=== PATIENT | female | born 2005 | race Caucasian/White ===

== ENCOUNTER 2025-02-26 06:40 | Outpatient (REF) | payer OTHER, SELFPAY ==
--- NOTE | ~2025-02-26 | US_ITS ---
EXAMINATION: US PELVIS CLINICAL INFORMATION: Pelvic and perineal pain COMPARISON: None available. TECHNIQUE: Ultrasound of the pelvis is performed using both transabdominal and transvaginal transducers along with Doppler. Transvaginal imaging is performed due to inadequate visualization transabdominally. FINDINGS: Uterus: The uterus is anteverted and measures 6.3 x 2.8 x 3.5 cm. The double wall endometrial thickness is 6 mm. IUD is visible in the upper uterine cavity. The uterus is smooth in contour and has normal myometrial echogenicity. No visible fibroid. Adnexa: Both ovaries are visualized. There is normal color flow to the adnexa. There is no ovarian torsion. There is no pelvic ascites or fluid collection. Right ovary measures 3.2 x 2.6 x 2.7 cm. Left ovary measures 3.8 x 2.3 x 2.0 cm. US/US pelvic and transvaginal IMPRESSION: Unremarkable pelvic ultrasound. IUD is appropriately positioned in the upper uterine canal. Electronically signed by: Wayne Brown MD 02/26/2025 02:36 PM EST
--- OUTSIDE RECORDS SUMMARY | 2025-02-26 06:44 | XMS_ITS | Clinical Summary ---
Author Organization [facility] Address [address] [place] [id number] Phone Care Team Providers Care Leather Shaver Name Role Phone Pcp, Unknown Primary Care Provider Unavailabl e Allergies No known active allergies Medications No known medications Social History Tobacco Use Types Packs/Day Years Used Date Smoking Tobacco: Never Assessed Education Answer Date Recorded Are you interested in more education? Not on titus e 05/20/2023 Are you concerned about learning? Not on file 05/20/2023 No 05/20/2023 No 05/20/2023 Digital Access Answer Date Recorded No 05/20/2023 No 05/20/2023 Reliable internet access at home? Not on file 05/20/2023 Device with a working camera? Not on file Intimate Partner Violence Answer Date R ecorded Are you denied basic needs s uch as food, clothing, or medical care? No 05/20/2023 In the past 12 months have y ou been in a relationship with a person who hurts, threatens, or tries to control you? No 05/20/2023 Are you denied basic needs s uch as food, clothing, or medical care? No 05/20/2023 In the past 12 months have y ou been in a relationship with a person who hurts, threatens, or tries to control you? No 05/20/2023 Comments Unknown Sex and Gender Information Value Date Recorded Sex Assigned at Female 05/20/2023 4:20 PM EST Legal Sex Female 4:06 PM EST Gender Identity Female 05/20/2023 4:20 PM EST Sexual Orientation Straight 05/20/2023 4: 26 PM EST Last Filed Vital Signs Vital Sign Reading Time Taken Comments Blood Pressure 124/74 05/20/2023 7:39 PM EST Pulse 84 05/20/2023 7:39 PM EST Temperature 37 C (98.6 F) 05/20/2023 7:39 PM EST Respiratory Rate 20 05/20/2023 7:39 PM EST Oxygen Saturation 98% 05/20/2023 7:39 PM EST Inhaled Oxygen Concentration - - Weight 53.1 kg (117 lb) 05/20/2023 4:25 PM EST Height 162.6 cm (5' 4 ) 05/20/2023 4:25 PM EST Body Mass Index 20.08 05/20/2023 4:25 PM EST Plan of Treatment Health Maintenance Due Date Last Done Comments Adult Td,Tdap Booster 2003 MMR VACCINES (1 of 1 - Stand stephani series) 09/23/2004 COMBINED DTaP,Tdap,Td (1 - Tdap) 09/23/2010 DEPRESSION SCREENING 2015 SMOKING Hx and SMOKELESS TOB ACCO SCREENING 09/23/2016 HPV VACCINES (1 - 3-dose series) 09/23/2018 CHLAMYDIA SCREENING 2019 MENINGOCOCCAL VACCINES (B) ( 1 of 2 - Standard) 2019 ADOLESCENT UNIVERSAL LIPID SCREENING 09/23/2020 HEPATITIS C SCREENING 09/23/2021 HIV ONE-TIME SCREENING (18-6 5 YEARS) 09/23/2021 PAP SMEAR 09/23/2024 INFLUENZA VACCINE (#1) 2024 COVID-19 VACCINE ( - 2024-2 6 season) 2024 HEPATITIS A VACCINES Aged Out No long er eligible based on patient's age to complete this topic HIB VACCINES Aged Out No longer eligi ble based on patient's age to complete this topic MENINGOCOCCAL VACCINES (ACWY) Aged Out No longer eligible based on patient's age to complete this topic PNEUMOCOCCAL VACCINES (0-49 years) Aged Out No longer eligible based on patient's age to complete this topic Medical Devices Not on file Insurance [facility] Care Teams Leather Shaver Relationship Specialty Start Date End Date Pcp, Unknown PCP - General 05/20/23 Additional Source Comments The information contained in this document represents components of the legal health record. It is not the complete legal health record.[facility]
== END 2025-02-26 06:41 | disposition home or self-care (01) ==
LOC: HO.UMASIMG 06:40
PROVIDERS: Visit Provider Nurse Practitioner Women's Health
DX: R10.20 Pelvic and perineal pain unspecified side (principal)
CPT/HCPCS: 76830; 76856

== ENCOUNTER → 2025-02-26 13:55 | Outpatient (BNV) | payer OTHER, SELFPAY | PROVIDERS: Visit Provider Radiology Diagnostic Radiology | DX: R10.20 Pelvic and perineal pain unspecified side (principal); Z97.5 Presence of (intrauterine) contraceptive device | CPT/HCPCS: 76830; 76856 ==